=== PATIENT | male | born 1985 | race Caucasian/White ===

== ENCOUNTER 2018-09-18 19:41 | Emergency (ER) | payer OTHER, SELFPAY ==
[2018-09-18 19:44] VITALS: BP 145/80; PULSE 130; RESP 22; TEMP 37.2; O2SAT 100
--- NOTE | 2018-09-18 19:54 | DI.RAD.S_ITS ---
PROCEDURE: XR ANKLE LT MIN 3V INDICATIONS: fall off ladder, pain w/ ambulation TECHNIQUE: 3 views of the ankle were acquired. COMPARISON: None. FINDINGS: Bones: No fractures or dislocations. Ankle mortise is normally aligned. No suspicious bony lesions. Soft tissues: No tibiotalar joint effusion. Achilles tendon appears normal. IMPRESSION: No acute fracture. No osseous lesion. If clinical suspicion and/or symptoms persist, further assessment with repeat plainfilms, or advanced imaging (e.g., CT, MRI, or bone scan) may be helpful for further assessment. Dictated by: Sepideh Aquino M.D. on 09/18/2018 at 20:19 Approved by: Sepideh Aquino M.D. on 09/18/2018 at 20:20
--- NOTE | 2018-09-18 21:35 | ED_ITS ---
HPI - Extremity Injury (Lower) General Chief Complaint: Extremity Injury, Lower Stated Complaint: LEFT ANKLE INJURY Time Seen by Provider: 09/18/18 21:15 Source: patient and family Mode of arrival: ambulatory Limitations: no limitations History of Present Illness HPI Narrative: 33-year-old male smoker with noncontributory medical history presents with a work-related ankle injury suffered yesterday when stepping aw kwardly off a ladder. He inverted his left ankle and has swelling, increased pain with ambulation. He denies instability, numbness or tingling. He does have a history of ankle injuries. He denies any knee or hip pain MD complaint: ankle injury Onset (ago): day(s) Injury: Left: ankle Type of Injury: inversion Place: work Severity: moderate Relieving factors: immobilization and rest Exacerbating factors: weight bearing, movement and palpation Associated symptoms: snap/pop sensation and swelling Other symptoms: none Related Data Home Medications Medication Instructions Recorded Confirmed No Known Home Medications 09/18/18 09/18/18 Allergies Allergy/AdvReac Type Severity Reaction Status Date / Time No Known Drug Allergies Allergy Verified 09/18/18 19:53 Review of Systems Constitutional Denies chills, Denies fever(s), Denies lethargy and Denies weakness Eyes Denies change in vision, Denies eye discharge, Denies irritation and Denies loss of vision ENT Ears, Nose, Mouth, and Throat: Denies change in voice, Denies neck pain and Denies sore throat Cardiovascular Denies chest pain, Denies irregular heart rhythm, Denies lightheadedness, Denies palpitations, Denies dyspnea, Denies dyspnea on exertion and Denies orthopnea Respiratory Denies cough, Denies dyspnea, Denies dyspnea on exertion and Denies wheezing Gastrointestinal Gastrointestinal: Denies abdominal pain, Denies change in bowel habits, Denies diarrhea, Denies nausea and Denies vomiting Genitourinary Denies hematuria, Denies flank pain, Denies urinary incontinence and Denies urinary urgency Musculoskeletal Reports joint swelling, Reports limited range of motion and Denies neck pain Integumentary/Breasts Denies pruritus, Denies erythema, Denies rash and Denies wounds Neurologic Denies confusion, Denies loss of vision and Denies weakness Psychiatric Denies anxiety, Denies confusion, Denies depression, Denies homicidal ideation and Denies suicidal ideation Endocrine Denies palpitations Hematologic/Lymphatic Denies easy bruising Allergic/Immunologic Denies wheezing PFSH Social History Smoking Status: Current every day smoker Social History Smoking Status: Current every day smoker Exam Narrative Exam Narrative: GEN: AOx3 and in mild distress EYES: Pupils are equal, round, and reactive to light and accommodation. Extraoccular muscles are intact bilaterally. There is no subconjunctival hemorrhage or exudate. CHEST: Lungs are clear to auscultation bilaterally and free of wheezes, rales, or rhonchi. Heart rate is regular rhythm, there are no murmurs, clicks, rubs, or gallops. There is no chest wall tenderness. ABD: Abdomen is soft and nontender. There is no guarding or rebound. Bowel sounds are normal in all 4 quadrants. There is no mass or organomegaly. EXT: Decreased range of motion of left ankle with pain over the distribution of the anterior talofibular ligament. No instability, closed, isolated, neuro intact SKIN: Warm, pink, and dry. No erythema or rash Initial Vital Signs Initial Vital Signs: Vital Signs Temperature 98.9 F 09/18/18 19:44 Pulse Rate 130 H 09/18/18 19:44 Respiratory Rate 22 09/18/18 19:44 Blood Pressure 145/80 H 09/18/18 19:44 Pulse Oximetry 100 09/18/18 19:44 Course Orders Ordered: ED Orders 09/18/18 19:54 XR ankle LT min 3V Stat Vital Signs - 8 hr 09/18/18 19:44 09/18/18 21:45 Temperature 98.9 F Pulse Rate 130 H 105 H Respiratory Rate 22 19 Blood Pressure 145/80 H 149/80 H Pulse Oximetry 100 100 MDM - Extremity Injury (Lower) Differential Diagnosis Likely ankle sprain and strain Imaging Data ankle sprain: Radiologist's impression: [address] [address] XRay Report Signed Patient: Matthew Combs#: [id number] : 1985Acct:[id number] Age/Sex: MDate of Service: 09/18/18 Loc: ED Accession Number: [id number] Procedure: XR ankle LT min 3V Ordering Provider: Hernshaw,Jorge D.O. PROCEDURE: XR ANKLE LT MIN 3V INDICATIONS: fall off ladder, pain w/ ambulation TECHNIQUE: 3 views of the ankle were acquired. COMPARISON: None. FINDINGS: Bones: No fractures or dislocations. Ankle mortise is normally aligned. No suspicious bony lesions. Soft tissues: No tibiotalar joint effusion. Achilles tendon appears normal. IMPRESSION: No acute fracture. No osseous lesion. If clinical suspicion and/or symptoms persist, further assessment with repeat plainfilms, or advanced imaging (e.g., CT, MRI, or bone scan) may be helpful for further assessment. Dictated by: Sepideh Aquino M.D. on 09/18/2018 at 20:19 Approved by: Sepideh Aquino M.D. on 09/18/2018 at 20:20 Discharge Plan Departure Patient Disposition: Home Clinical Impression: Ankle sprain and strain Discharge Date/Time: 09/18/18 21:46 Interventions: ED Discharge Assessment Last Done: 09/18/18 21:45 Instructions: DI for Ankle Sprain Activity Restrictions/Additional Instructions: *You have been diagnosed with [left ankle sprain] *What to do: *Take medications as directed *Follow up with your primary care provider in 2-3 days, call for an appointment. Let them know you were seen in the Emergency Department and that we ask that you be seen in follow up *Return to ER if you should have any new, worsening or concerning symptoms Prescriptions: No Action No Known Home Medications RF: 0
[2018-09-18 21:45] VITALS: BP 149/80; PULSE 105; RESP 19; O2SAT 100
== END 2018-09-18 21:46 | disposition home or self-care (01) ==
PROVIDERS: Emergency Provider Emergency Medicine
DX: S93.402A Sprain of unspecified ligament of left ankle, initial encounter (principal); Y99.0 Civilian activity done for income or pay
CPT/HCPCS: 73610; 99282; 99283